=== PATIENT | female | born 2000 | race Caucasian/White ===

== ENCOUNTER 2022-03-24 20:39 | Emergency (ER) | payer BC ==
[~2022-03-24] VITALS: Ht 170.2 cm; Wt 81.6 kg
--- NOTE | 2022-03-24 21:03 | NUR ---
Dr Rhoades at bedside. MSE in progress.
[2022-03-24] MEDS ORDERED: HYDROMORPHONE 1 MG/1 ML DISP.SYRIN IV ONE (21:15)
[2022-03-24] MEDS ORDERED: PROCHLORPERAZINE EDISYLATE 10 MG/2 ML VIAL IV ONE (21:15)
[2022-03-24] MEDS ORDERED: IV NORMAL SALINE 1000 ML BAG IV ONE (21:15)
[2022-03-24] MEDS ORDERED: HYDROMORPHONE 1 MG/1 ML DISP.SYRIN ONE (21:19)
[2022-03-24] MEDS ORDERED: PROCHLORPERAZINE EDISYLATE 10 MG/2 ML VIAL ONE (21:19)
[2022-03-24 21:50] LABS: HEMATOCRIT 35.1 % (31.2-41.9); MEAN CORPUSCULAR HEMOGLOBIN 31.2 uug (24.7-32.8); MEAN CORPUSCULAR VOLUME 91.2 fL (75.5-95.3); PLATELET COUNT (AUTO) 252 K/uL (179-408)
[2022-03-24 22:04] LABS: BILIRUBIN,DIRECT 0.1 mg/dL (0.0-0.2); BILIRUBIN,TOTAL 0.2 mg/dL (0.2-1.0); CREATININE 0.6 mg/dL (0.6-1.3); POTASSIUM 3.7 mmol/L (3.5-5.1); TOTAL PROTEIN, SERUM 6.8 g/dL (6.4-8.2)
[2022-03-24 22:04] LABS: *BILIRUBIN,URIN NEGATIVE (NEGATIVE); *BLOOD, URINE NEGATIVE (NEGATIVE); *CLARITY,URINE CLEAR (CLEAR); *COLOR,URINE YELLOW (YELLOW); *KETONES,URINE NEGATIVE (NEGATIVE); *UROBILINOGEN,URINE 0.2 E.U./dl (NORMAL); LEUKOCYTE ESTERASE ,URINE NEGATIVE (NEGATIVE); NITRITE, URINE NEGATIVE (NEGATIVE); UGLUCOSE NEGATIVE (NEGATIVE)
[2022-03-24 22:29] LABS: MAGNESIUM 1.9 mg/dL (1.8-2.4)
[2022-03-24] MEDS ORDERED: IV NS 1000 ML 1,000 ML IV ONE (22:30)
[2022-03-24] MEDS ORDERED: CYANOCOBALAMIN 1000 MCG/ML VIAL ONE (22:39)
[2022-03-24] MEDS ORDERED: MAGNESIUM SULFATE/D5W 200 ML ONE (22:39)
[2022-03-24] MEDS ORDERED: CYANOCOBALAMIN 1000 MCG/ML VIAL IM ONE (22:45)
[2022-03-24] MEDS: MAGNESIUM SULFATE/D5W 100 ML IV SCH ×2 (22:53→22:59)
[2022-03-24] MEDS ORDERED: OXYC-128 PO (22:55)
[2022-03-24] MEDS ORDERED: PREN1TAB81 PO (22:55)
[2022-03-24] MEDS ORDERED: PROC-11 PO (22:55)
--- NOTE | 2022-03-24 23:23 | NUR ---
Patient discharged to home in stable condition. Written and verbal after care instructions given. Patient verbalizes understanding of instructions. Stressed follow up or return to ER for worsening s/s. pt ambulated with steady gait. denies pain. no SOB. no chest pain. AOx4. accompanied by .
[2022-03-24 23:24] VITALS: BP 108/96
== END 2022-03-24 23:25 | disposition home or self-care (01) ==
LOC: ER 20:57
DX: O99.612 Diseases of the digestive system complicating pregnancy, second trimester (principal); K92.89 Other specified diseases of the digestive system; Z3A.19 19 weeks gestation of pregnancy; K52.9 Noninfective gastroenteritis and colitis, unspecified; E53.8 Deficiency of other specified B group vitamins; R07.1 Chest pain on breathing
CPT/HCPCS: 36415; 76805; 80048; 80076; 81003; 82607; 83735; 84702; 85025; 93005; 96361; 96365; 96372; 96375; 99285; J0780; J1170; J3420; J3475; J7040 ×2; 70030-TC; A4663

== ENCOUNTER 2025-05-01 14:51 | Emergency (ER) | payer BC, OTHER ==
[~2025-05-01] VITALS: Ht 170.2 cm; Wt 86.2 kg
[~2025-05-01 14:51] MED LIST: OXYC-128 PO; PREN1TAB81 PO; PROC-11 PO
[2025-05-01] MEDS: IV NORMAL SALINE 1000 ML BAG IV ONE (15:35)
[2025-05-01 15:53] LABS: BASOPHILS % (AUTO) 0.5 % (0.0-2.0); CALCIUM 9.6 mg/dL (8.5-10.1); CREATININE 0.6 mg/dL (0.6-1.3); EOSINOPHILS # (AUTO) 0.1 K/uL (0.0-0.7); EOSINOPHILS % (AUTO) 1.3 % (0.0-7.0); HEMATOCRIT 39.7 % (31.2-41.9); HEMOGLOBIN 13.4 g/dL (10.9-14.3); LYMPHOCYTES # (AUTO) 1.7 K/uL (0.8-4.8); MEAN CORPUSCULAR HEMOGLOBIN 29.3 uug (24.7-32.8); MEAN CORPUSCULAR HGB CONC 34 g/dL (32.3-35.6); MEAN CORPUSCULAR VOLUME 86.4 fL (75.5-95.3); MONOCYTES # (AUTO) 0.5 K/uL (0.1-1.30); MONOCYTES % (AUTO) 6.4 % (0.0-11.0); NEUTROPHILS # (AUTO) 5.2 K/uL (1.8-8.9); NEUTROPHILS % (AUTO) 68.8 % (38.5-71.5); PLATELET COUNT (AUTO) 279 K/uL (179-408); POTASSIUM 3.6 mmol/L (3.5-5.1); RED BLOOD CELL COUNT(AUTO) 4.59 MIL/uL (3.63-4.92); RED CELL DISTRIBUTION WIDTH 12.9 % (12.3-17.7); WHITE BLOOD COUNT (AUTO) 7.6 K/uL (3.8-11.8)
[2025-05-01 15:54] LABS: DIFFERENTIAL COMMENT 1
[2025-05-01 15:56] LABS: *BILIRUBIN,URIN NEGATIVE (NEGATIVE); *BLOOD, URINE NEGATIVE (NEGATIVE); *CLARITY,URINE CLEAR (CLEAR); *COLOR,URINE YELLOW (YELLOW); *KETONES,URINE NEGATIVE (NEGATIVE); *PROTEIN,URINE NEGATIVE (NEGATIVE); *UROBILINOGEN,URINE 0.2 E.U./dl (NORMAL); LEUKOCYTE ESTERASE ,URINE TRACE (NEGATIVE); NITRITE, URINE NEGATIVE (NEGATIVE); PH,URINE 5.5 (5.0-8.0); UGLUCOSE NEGATIVE (NEGATIVE)
[2025-05-01 15:58] LABS: ALBUMIN 4.2 g/dL (3.4-5.0); BILIRUBIN,DIRECT 0.1 mg/dL (0.0-0.2); BILIRUBIN,TOTAL 0.4 mg/dL (0.2-1.0); TOTAL PROTEIN, SERUM 7.5 g/dL (6.4-8.2)
[2025-05-01 16:00] LABS: *URINE HCG, QUAL NEGATIVE (NEGATIVE)
[2025-05-01 16:07] LABS: BACTERIA,URINE NONE SEEN /HPF (NONE SEEN); RBC,URINE NONE SEEN /HPF (0-3); WBC,URINE 0-3 /HPF (0-3)
[2025-05-01 16:08] LABS: SQUAMOUS EPITHELIAL CELL,UR FEW /HPF (NONE SEEN)
[2025-05-01] MEDS ORDERED: KETOROLAC TROMETHAMINE 30 MG INJ ONE (17:15)
[2025-05-01] MEDS ORDERED: MECLIZINE HCL 25 MG TABLET ONE (17:15)
[2025-05-01] MEDS: KETOROLAC TROMETHAMINE 30 MG INJ IVP ONE (17:16)
[2025-05-01] MEDS ORDERED: METOCLOPRAMIDE HCL 10 MG/2 ML VIAL ONE (17:16)
[2025-05-01] MEDS: METOCLOPRAMIDE HCL 10 MG/2 ML VIAL IV ONE (17:18)
[2025-05-01] MEDS: MECLIZINE HCL 25 MG TABLET PO ONE (17:33)
[2025-05-01] MEDS ORDERED: HYDR-3972 PO (17:47)
[2025-05-01] MEDS ORDERED: METO-295 PO (17:47)
[2025-05-01] MEDS ORDERED: MECL-159 PO (17:47)
[2025-05-01] MEDS ORDERED: ACETAMINOPHEN 500 MG TABLET ONE (17:57)
[2025-05-01] MEDS: ACETAMINOPHEN 500 MG TABLET PO ONE (17:58)
[2025-05-01 18:24] VITALS: BP 101/71; O2SAT 98
== END 2025-05-01 18:24 | disposition home or self-care (01) ==
LOC: ER 15:14
DX: H81.10 Benign paroxysmal vertigo, unspecified ear (principal); R53.1 Weakness; Z87.59 Personal history of other complications of pregnancy, childbirth and the puerperium
CPT/HCPCS: 99284; 96374; 96361; 96375; 80076; 80048; 81001; 84703; 85025; 36415; 93005; J1885; J2765; J7040; A4606; A4663; A9150; J8597